=== PATIENT | female | born 1945 | race American Indian/Alaskan Native ===

== ENCOUNTER 2021-04-07 08:00 | Outpatient (CLI) | payer OTHER | END 2021-04-07 08:30 | disposition home or self-care (01) | LOC: PPH VACUNA 08:00 | DX: Z23 Encounter for immunization (principal) ==

== ENCOUNTER 2022-01-05 12:30 | Outpatient (CLI) | payer OTHER | END 2022-01-05 12:40 | disposition home or self-care (01) | LOC: PPH VACUNA 12:30 | PROVIDERS: ATTEND Emergency Medicine Pediatric Emergency Medicine | DX: Z23 Encounter for immunization (principal) ==